=== PATIENT | female | born 1975 | race Caucasian/White ===

== ENCOUNTER 2018-04-23 16:45 | Emergency (ER) | payer MEDICAID ==
--- NOTE | 2018-04-23 16:56 | EDM.PDOC ---
ED HPI GENERAL MEDICAL PROBLEM - General Chief Complaint: General Stated Complaint: ABNORMAL VAGINAL BLEEDING Time Seen by Provider: 04/23/18 16:50 Source of Information: Reports: Patient History Limitations: Reports: No Limitations - History of Present Illness INITIAL COMMENTS - FREE TEXT/NARRATIVE: 43 YO WF presents to ER with dysfunctional uterine bleeding. Pt reports abnormal bleeding began 03/02/2018. Pt states when it started on 03/02 she believed it was her normal menses, but the bleeding continued. Pt reports bleeding has been light with some clotting in the past, but last night it became heavy causing her some concern. Pt denies any dizziness, shortness of breath or chest pain. Pt reports feeling a little weak and shaky today prompting ER visit. Pt was seen in clinic by Dr Jemma Hernandez and had endouterine biopsy 04/18/2018 and is awaiting results. Onset Date: 03/02/18 Duration: Chronic Location: Reports: Generalized Severity: Mild Improves with: Reports: None Worsens with: Reports: None Associated Symptoms: Reports: No Other Symptoms - Related Data Allergies Allergy/AdvReac Type Severity Reaction Status Date / Time Penicillins Allergy Cannot Verified 04/23/18 16:58 Remember codeine Allergy Other Uncoded 04/23/18 16:58 Home Meds: Home Meds medroxyPROGESTERone [Provera] 10 mg PO DAILY #7 tab 04/23/18 [Rx] ED ROS GENERAL - Review of Systems Review Of Systems: See Below Constitutional: Reports: No Symptoms HEENT: Reports: No Symptoms Respiratory: Reports: No Symptoms Cardiovascular: Reports: No Symptoms Endocrine: Reports: No Symptoms GI/Abdominal: Reports: No Symptoms : Reports: Irregular Menses Musculoskeletal: Reports: No Symptoms Skin: Reports: No Symptoms Neurological: Reports: No Symptoms Psychiatric: Reports: No Symptoms Hematologic/Lymphatic: Reports: No Symptoms Immunologic: Reports: No Symptoms ED EXAM, GENERAL - Physical Exam Exam: See Below Exam Limited By: No Limitations General Appearance: Alert, WD/WN, No Apparent Distress Nose: Normal Inspection, Normal Mucosa, No Blood Throat/Mouth: Normal Inspection, Normal Lips, Normal Teeth, Normal Gums, Normal Oropharynx, Normal Voice, No Airway Compromise Head: Atraumatic, Normocephalic Neck: Normal Inspection, Supple, Non-Tender, Full Range of Motion Respiratory/Chest: No Respiratory Distress, Lungs Clear, Normal Breath Sounds, No Accessory Muscle Use, Chest Non-Tender Cardiovascular: Normal Peripheral Pulses, Regular Rate, Rhythm, No Edema, No Gallop, No JVD, No Murmur, No Rub GI/Abdominal: Normal Bowel Sounds, Soft, Non-Tender, No Organomegaly, No Distention, No Abnormal Bruit, No Mass Back Exam: Normal Inspection, Full Range of Motion, NT Extremities: Normal Inspection, Normal Range of Motion, Non-Tender, Normal Capillary Refill, No Pedal Edema Neurological: Alert, Oriented, CN II-XII Intact, Normal Cognition, Normal Gait, Normal Reflexes, No Motor/Sensory Deficits Psychiatric: Normal Affect, Normal Mood Skin Exam: Warm, Dry, Intact, Normal Color, No Rash Lymphatic: No Adenopathy Course - Vital Signs Last Recorded V/S: Last Vital Signs Temp 36.9 C 04/23/18 16:55 Pulse 68 04/23/18 16:55 Resp 20 04/23/18 16:55 BP 121/71 04/23/18 16:55 Pulse Ox 100 04/23/18 16:55 - Orders/Labs/Meds Orders: Active Orders 24 hr Category Date Time Status Orthostatic Vital Signs [RC] ASDIRECTED Care 04/23/18 17:02 Active Labs: Laboratory Tests 04/23/18 04/23/18 Range/Units 17:15 17:15 WBC 7.3 (5.0-10.0) 10^3/uL RBC 3.50 L (3.80-5.50) 10^6/uL Hgb 10.4 L (12.0-16.0) g/dL Hct 31.7 L (37.0-47.0) % MCV 90.6 (82.0-92.0) fL MCH 29.8 (27.0-31.0) pg MCHC 32.8 (32.0-36.0) g/dL RDW 12.2 (11.5-14.5) % Plt Count 301 H (150-300) 10^3/uL MPV 8.2 (7.4-10.4) fL Neut % (Auto) 56.9 (50.0-70.0) % Lymph % (Auto) 29.7 (20.0-40.0) % Elliott % (Auto) 9.5 H (2.0-8.0) % Eos % (Auto) 2.4 (1.0-3.0) % Baso % (Auto) 1.5 H (0.0-1.0) % Neut # (Auto) 4.1 (2.5-7.0) 10^3/uL Lymph # (Auto) 2.2 (1.0-4.0) 10^3/uL Elliott # (Auto) 0.7 (0.1-0.8) 10^3/uL Eos # (Auto) 0.2 (0.1-0.3) 10^3/uL Baso # (Auto) 0.1 (0.0-0.1) 10^3/uL Sodium 138 (136-145) mmol/L Potassium 3.7 (3.3-5.3) mmol/L Chloride 103 (98-115) mmol/L Carbon Dioxide 24.3 (21.0-32.0) mmol/L Anion Gap 14.4 (5-15) mmol/L BUN 10 (6-25) mg/dL Creatinine 0.64 (0.51-1.17) mg/dL Est Cr Clr Drug Dosing 113.67 mL/min Estimated GFR (MDRD) > 60 mL/min Glucose 98 mg/dL Calcium 8.3 L (8.7-10.3) mg/dL HCG, Qual Negative (NEGATIVE) Departure - Departure Time of Disposition: 17:53 Disposition: Home, Self-Care 01 Condition: Good Clinical Impression: Dysfunctional uterine bleeding - Discharge Information Prescriptions: medroxyPROGESTERone [Provera] 10 mg PO DAILY #7 tab Instructions: Abnormal Uterine Bleeding Forms: ED Department Discharge Additional Instructions: 1. discharge home 2. discussed case with Dr Jemma Hernandez- Uterine biopsy was negative for dysplasia. Recommended Provera 10mg PO Qd x 10 days with follow up in office for possible IUP vs uterine ablastion. Pt was encouraged to stop smoking. 3. consider FeSO4 for anemia 4. return to ER for worsening symptoms - My Orders Last 24 Hours: My Active Orders 04/23/18 17:02 Orthostatic Vital Signs [RC] ASDIRECTED - Assessment/Plan Last 24 Hours: My Active Orders 04/23/18 17:02 Orthostatic Vital Signs [RC] ASDIRECTED Assessment:: 1. Dysfunctional uterine bleeding Plan: 1. discharge home 2. discussed case with Dr Jemma Hernandez- Uterine biopsy was negative for dysplasia. Recommended Provera 10mg PO Qd x 10 days with follow up in office for possible IUP vs uterine ablastion. Pt was encouraged to stop smoking. 3. consider FeSO4 for anemia 4. return to ER for worsening symptoms
[2018-04-23 17:42] LABS: ANION GAP 14.4 mmol/L (5-15); CHLORIDE,CL 103 mmol/L (98-115); SODIUM,NA 138 mmol/L (136-145)
== END 2018-04-23 18:25 | disposition home or self-care (01) ==
LOC: KA.ED 16:45
DX: N93.8 Other specified abnormal uterine and vaginal bleeding (principal); Z88.5 Allergy status to narcotic agent; Z88.0 Allergy status to penicillin
CPT/HCPCS: 36415; 80048; 84703; 85025; 99284; A9270-GY